=== PATIENT | male | born 1945 | race Caucasian/White ===

== ENCOUNTER → 2020-10-26 | Outpatient (CLI) | payer MEDICARE ==
--- NOTE | 2020-10-22 10:21 | NUR ---
LMOM WITH INSTRUCTIONS AND CALL BACK NUMBER
[~2020-10-26] VITALS: Ht 167.6 cm; Wt 97.0 kg
[~2020-10-26] MED LIST: ALLEGRA D 12 HO1 TER PO; ALPARAZOLAM0.5 MG PO; AMITRIPTYLINE25 MG PO; ASPIRIN E.C. 8181 MG PO; B-121000 MCG PO; BENAZEPRIL10 MG PO; CARDENE30 MG PO; CELEXA 20MG20 MG/TAB PO; COREG 25MG25 MG/TAB PO; COZAAR100 MG PO; DILTIA XT240 MG PO; FISH OIL1000 MG PO; FLEXERIL 1010 MG/TAB PO; GLUCOPHAGE500 MG/TAB PO; HCTZ 25MG TAB25 MG PO; HUMULIN 70/3100 U/M1 SQ; IMDUR 30MG30 MG/TAB PO; KLONOPIN WAFERS1 MG PO; LIPITOR 40MG TA40 MG PO; METFORMIN500 MG PO; MULTIPLE VITAMI1 CAP PO; NEXIUM 40MG40 MG PO; NORCO 325 MG-51 TAB PO; NORVASC 10MG10 MG PO; NOVOLOGMIX70/30 SQ; OMEGA-3 1000 MG1 CAP PO; ONE-A-DAY ESSE1 EACH PO; PLAVIX 75MG TAB75 MG PO; PLETAL50 MG PO; PROAIR HFA0.09 MG/AC IH; PROTONIX 40MG T40 MG PO; REGLAN 5MG T5 MG/TAB PO; SINGULAIR 110 MG/TAB PO; SYNTHROID0.05 MG PO; THEO-24 20200 MG/CAP PO; ZYLOPRIM 100MG100 MG PO; ZYRTEC 10MG10 MG PO
[2020-10-26 12:34] VITALS: BP 179/102; PULSE 76
[2020-10-26 14:10] VITALS: BP 142/99; PULSE 91
== END ==
LOC: COL.RAD 12:07
DX: M48.02 Spinal stenosis, cervical region (principal); M54.10 Radiculopathy, site unspecified

== ENCOUNTER → 2020-11-15 | Outpatient (CLI) | payer MEDICARE ==
[~2020-11-15] VITALS: Ht 167.6 cm; Wt 92.7 kg
[2020-11-15 13:09] VITALS: BP 150/91; PULSE 85
[2020-11-15 14:15] VITALS: BP 166/94; PULSE 78
== END ==
LOC: COL.RAD 12:40
DX: M48.02 Spinal stenosis, cervical region (principal)
CPT/HCPCS: J1100

== ENCOUNTER → 2020-12-03 | Outpatient (CLI) | payer MEDICARE ==
[~2020-12-03] VITALS: Ht 167.6 cm; Wt 95.0 kg
[2020-12-03 07:04] VITALS: BP 99/62; PULSE 71
[2020-12-03 08:00] VITALS: BP 142/74; PULSE 53
== END ==
LOC: COL.RAD 06:30
DX: M48.02 Spinal stenosis, cervical region (principal); M54.10 Radiculopathy, site unspecified
CPT/HCPCS: J1100